=== PATIENT | female | born 1940 ===

== ENCOUNTER 2017-08-13 16:00 | Outpatient (RCR) | payer BC ==
[~2017-08-13] VITALS: Ht 30.5 cm; Wt 0.5 kg
== END 2017-09-01 | disposition home or self-care (01) ==
LOC: PTY 16:00
DX: R26.89 Other abnormalities of gait and mobility (principal); Z91.81 History of falling

== ENCOUNTER 2017-09-07 15:00 | Outpatient (RCR) | payer BC | END 2017-10-01 | disposition home or self-care (01) | LOC: PTY 15:00 | DX: R26.89 Other abnormalities of gait and mobility (principal); Z91.81 History of falling; M19.90 Unspecified osteoarthritis, unspecified site ==

== ENCOUNTER 2017-10-04 10:10 | Outpatient (RCR) | payer BC | END 2017-11-01 | disposition home or self-care (01) | LOC: PTY 10:10 | DX: R26.89 Other abnormalities of gait and mobility (principal); Z91.81 History of falling ==

== ENCOUNTER 2017-11-16 08:55 | Outpatient (RCR) | payer BC | END 2017-12-01 | disposition home or self-care (01) | LOC: PTY 08:55 | DX: R26.89 Other abnormalities of gait and mobility (principal); Z91.81 History of falling ==

== ENCOUNTER 2017-12-03 12:48 | Outpatient (RCR) | payer BC | END 2018-01-01 | disposition home or self-care (01) | LOC: PTY 12:48 | DX: R26.89 Other abnormalities of gait and mobility (principal); Z91.81 History of falling ==

== ENCOUNTER → 2018-02-01 | Outpatient (RCR) | payer BC | END | disposition home or self-care (01) | LOC: PTY 10:30 | DX: R26.89 Other abnormalities of gait and mobility (principal); Z91.81 History of falling ==

== ENCOUNTER 2018-02-06 14:30 | Outpatient (RCR) | payer BC | END 2018-03-03 | disposition home or self-care (01) | LOC: PTY 14:30 | DX: Z91.81 History of falling (principal) ==